=== PATIENT | male | born 1955 | race Caucasian/White ===

== ENCOUNTER 2017-12-12 13:26 | Inpatient (IN) | payer MEDICAID, OTHER ==
[2017-12-12 14:29] LABS: ADD MAN DIFF? NO
[2017-12-12 14:44] LABS: WHITE BLOOD COUNT 6.9 10^3/ul (4.8-10.8)
[2017-12-12 14:44] LABS: BASOPHILS % 0.4 % (0.0-2.0); EOSINOPHILS # 0.1 10^3/ul (0.0-0.5); EOSINOPHILS % 1.2 % (0.0-7.0); HEMATOCRIT 40.8 % (42.0-52.0); HEMOGLOBIN 13.4 g/dl (14.0-18.0); LYMPHOCYTES % 14.7 % (15.0-51.0); MEAN CORPUSCULAR HEMOGLOBIN 30.4 pg (29.0-33.0); MEAN CORPUSCULAR HGB CONC 32.8 g/dl (32.0-37.0); MEAN CORPUSCULAR VOLUME 92.5 fl (82.0-101.0); MONOCYTE # 0.4 10^3/ul (0.3-0.9); NEUTROPHIL # 5.5 10^3/ul (1.6-7.5); NEUTROPHILS % 78.6 % (39.0-77.0); PLATELET COUNT 194 10^3/UL (140-415); RED BLOOD COUNT 4.41 10^6/ul (4.70-6.10); RED CELL DISTRIBUTION WIDTH 13.6 % (11.5-14.5)
[2017-12-12 14:49] LABS: ANION GAP 14 (8-16); BLOOD UREA NITROGEN 15 mg/dl (7-20); CARBON DIOXIDE 26 mmol/L (21-31); CHLORIDE 106 mmol/L (97-110); CREATININE 0.88 mg/dl (0.61-1.24); GLUCOSE 126 mg/dl (70-220); POTASSIUM 4.5 mmol/L (3.5-5.1); SODIUM 141 mmol/L (135-144)
[2017-12-12 14:50] LABS: PROTIME 13.3 Sec (11.9-14.9)
[2017-12-12 15:01] LABS: TROPONIN-I 0.034 ng/ml (0.00-0.12)
[2017-12-12] MEDS: ASPIRIN 81 MG TAB PO (17:43)
[2017-12-12] MEDS: SOD CHLORIDE 0.9% 1,000 ML IV (18:16)
[2017-12-12] MEDS ORDERED: ACETAMINOPHEN 325 MG TAB PO (18:30)
[2017-12-12] MEDS ORDERED: NACL 0.9% 3 ML SYG IV (18:30)
[2017-12-12] MEDS ORDERED: HYDROCODONE/APAP (5/325) TAB PO (18:30)
[2017-12-12] MEDS ORDERED: LORAZEPAM 0.5 MG TAB PO (18:30)
[2017-12-12] MEDS ORDERED: morphine 2 MG INJ IV (18:30)
[2017-12-12] MEDS ORDERED: ONDANSETRON 4 MG INJ IV (18:30)
[2017-12-12] MEDS ORDERED: BISACODYL (EC) 5 MG TAB PO (18:30)
[2017-12-12] MEDS: NICOTINE (14 MG/24 HR) PATCH TRANSDERM (18:30)
[2017-12-12] MEDS: NEOMYC/POLYMYX/BACIT 30 GM OINT TOP (19:46)
[2017-12-12] MEDS: HEPARIN 5,000 UNIT/0.5 ML VIAL SC (22:54)
[2017-12-12] MEDS: FAMOTIDINE 20 MG INJ IV (22:57)
[2017-12-13 00:35] LABS: ANION GAP 12 (8-16); BLOOD UREA NITROGEN 15 mg/dl (7-20); CARBON DIOXIDE 28 mmol/L (21-31); CHLORIDE 106 mmol/L (97-110); CREATININE 0.83 mg/dl (0.61-1.24); GLUCOSE 124 mg/dl (70-220); MAGNESIUM 2.1 mg/dl (1.7-2.5); PHOSPHORUS 3.1 mg/dl (2.5-4.9); POTASSIUM 4.2 mmol/L (3.5-5.1); SODIUM 142 mmol/L (135-144)
[2017-12-13 02:59] LABS: TROPONIN-I 0.037 ng/ml (0.00-0.12)
[2017-12-13] MEDS: HEPARIN 5,000 UNIT/0.5 ML VIAL SC ×3 (05:49→21:55)
[2017-12-13 06:22] LABS: ADD MAN DIFF? NO
[2017-12-13 06:31] LABS: BASOPHILS % 0.4 % (0.0-2.0); EOSINOPHILS # 0.2 10^3/ul (0.0-0.5); EOSINOPHILS % 3.1 % (0.0-7.0); HEMATOCRIT 39.7 % (42.0-52.0); HEMOGLOBIN 13.2 g/dl (14.0-18.0); LYMPHOCYTES # 2.1 10^3/ul (0.8-2.9); MEAN CORPUSCULAR HEMOGLOBIN 30.9 pg (29.0-33.0); MEAN CORPUSCULAR HGB CONC 33.2 g/dl (32.0-37.0); MEAN PLATELET VOLUME 12.2 fl (7.4-10.4); MONOCYTE # 0.6 10^3/ul (0.3-0.9); MONOCYTES % 7.6 % (0.0-11.0); NEUTROPHIL # 4.5 10^3/ul (1.6-7.5); NEUTROPHILS % 60.8 % (39.0-77.0); PLATELET COUNT 187 10^3/UL (140-415); RED BLOOD COUNT 4.27 10^6/ul (4.70-6.10); RED CELL DISTRIBUTION WIDTH 13.6 % (11.5-14.5)
[2017-12-13 06:31] LABS: WHITE BLOOD COUNT 7.4 10^3/ul (4.8-10.8)
[2017-12-13 06:55] LABS: ALANINE AMINOTRANSFERASE 29 IU/L (13-69); ALBUMIN 3.6 g/dl (3.3-4.9); ALBUMIN/GLOBULIN RATIO 1.33; ALKALINE PHOSPHATASE 59 IU/L (42-121); ANION GAP 13 (8-16); ASPARTATE AMINO TRANSFERASE 19 IU/L (15-46); BILIRUBIN,INDIRECT 0.2 mg/dl (0-1.1); BILIRUBIN,TOTAL 0.2 mg/dl (0.2-1.3); BLOOD UREA NITROGEN 18 mg/dl (7-20); CALCIUM 8.9 mg/dl (8.4-10.2); CARBON DIOXIDE 28 mmol/L (21-31); CHLORIDE 107 mmol/L (97-110); CHOL/HDL RATIO 6.2 RATIO; CHOLESTEROL 174 mg/dl (100-200); CREATININE 0.91 mg/dl (0.61-1.24); GLUCOSE 91 mg/dl (70-220); HDL CHOLESTEROL 28 mg/dl (30-78); LDL CHOLESTEROL,CALCULATED 126 mg/dl; MAGNESIUM 2.1 mg/dl (1.7-2.5); POTASSIUM 4.2 mmol/L (3.5-5.1); SODIUM 144 mmol/L (135-144); TOTAL PROTEIN 6.3 g/dl (6.1-8.1); TRIGLYCERIDES 102 mg/dl (0-149)
[2017-12-13] MEDS: SOD CHLORIDE 0.9% 1,000 ML IV (07:28)
[2017-12-13 07:52] LABS: HEMOGLOBIN A1C 5.3 % (0-5.9)
[2017-12-13] MEDS: ASPIRIN 81 MG TAB PO (08:34)
[2017-12-13] MEDS: FAMOTIDINE 20 MG INJ IV ×2 (08:34→21:53)
[2017-12-13] MEDS: NICOTINE (14 MG/24 HR) PATCH TRANSDERM (08:38)
[2017-12-13] MEDS: AMIODARONE 150MG/D5W BOLUS 100 ML IV (13:09)
[2017-12-13] MEDS: AMIODARONE 900 MG in DEXTROSE 5% 482 ML IV (13:24)
[2017-12-13] MEDS: IOHEXOL 100 ML (18:01)
[2017-12-13] MEDS: ATORVASTATIN 40 MG TAB PO (21:55)
[2017-12-14] MEDS: HEPARIN 5,000 UNIT/0.5 ML VIAL SC ×3 (05:57→22:11)
[2017-12-14 06:16] LABS: ADD MAN DIFF? NO
[2017-12-14 06:25] LABS: BASOPHIL # 0.1 10^3/ul (0.0-0.1); BASOPHILS % 0.8 % (0.0-2.0); EOSINOPHILS # 0.2 10^3/ul (0.0-0.5); EOSINOPHILS % 2.9 % (0.0-7.0); HEMOGLOBIN 13.5 g/dl (14.0-18.0); LYMPHOCYTES # 2.3 10^3/ul (0.8-2.9); LYMPHOCYTES % 29.5 % (15.0-51.0); MEAN CORPUSCULAR HGB CONC 32.9 g/dl (32.0-37.0); MEAN PLATELET VOLUME 12.9 fl (7.4-10.4); MONOCYTE # 0.6 10^3/ul (0.3-0.9); MONOCYTES % 7.6 % (0.0-11.0); NEUTROPHIL # 4.7 10^3/ul (1.6-7.5); NEUTROPHILS % 58.8 % (39.0-77.0); PLATELET COUNT 168 10^3/UL (140-415); RED BLOOD COUNT 4.36 10^6/ul (4.70-6.10); RED CELL DISTRIBUTION WIDTH 13.5 % (11.5-14.5)
[2017-12-14 06:25] LABS: WHITE BLOOD COUNT 7.9 10^3/ul (4.8-10.8)
[2017-12-14 06:50] LABS: ANION GAP 15 (8-16); BLOOD UREA NITROGEN 23 mg/dl (7-20); CALCIUM 9.6 mg/dl (8.4-10.2); CARBON DIOXIDE 26 mmol/L (21-31); CHLORIDE 105 mmol/L (97-110); CREATININE 1.02 mg/dl (0.61-1.24); GLUCOSE 106 mg/dl (70-220); PHOSPHORUS 4.2 mg/dl (2.5-4.9); POTASSIUM 4.4 mmol/L (3.5-5.1); SODIUM 142 mmol/L (135-144)
[2017-12-14] MEDS: FAMOTIDINE 20 MG INJ IV ×2 (09:51→22:08)
[2017-12-14] MEDS: LISINOPRIL 5 MG TAB PO (09:51)
[2017-12-14] MEDS: ASPIRIN 81 MG TAB PO (09:52)
[2017-12-14] MEDS: NICOTINE (14 MG/24 HR) PATCH TRANSDERM (09:52)
[2017-12-14] MEDS: ATORVASTATIN 40 MG TAB PO (22:08)
[2017-12-15 08:14] LABS: ADD MAN DIFF? NO
[2017-12-15 08:32] LABS: BASOPHILS % 0.5 % (0.0-2.0); EOSINOPHILS # 0.2 10^3/ul (0.0-0.5); EOSINOPHILS % 2.8 % (0.0-7.0); HEMATOCRIT 38.9 % (42.0-52.0); HEMOGLOBIN 13.1 g/dl (14.0-18.0); LYMPHOCYTES # 2.4 10^3/ul (0.8-2.9); LYMPHOCYTES % 29.5 % (15.0-51.0); MEAN CORPUSCULAR HEMOGLOBIN 31.1 pg (29.0-33.0); MEAN CORPUSCULAR HGB CONC 33.7 g/dl (32.0-37.0); MEAN CORPUSCULAR VOLUME 92.4 fl (82.0-101.0); MEAN PLATELET VOLUME 12.9 fl (7.4-10.4); MONOCYTE # 0.6 10^3/ul (0.3-0.9); MONOCYTES % 7.7 % (0.0-11.0); NEUTROPHIL # 4.7 10^3/ul (1.6-7.5); NEUTROPHILS % 59.2 % (39.0-77.0); PLATELET COUNT 175 10^3/UL (140-415); RED BLOOD COUNT 4.21 10^6/ul (4.70-6.10); RED CELL DISTRIBUTION WIDTH 13.5 % (11.5-14.5)
[2017-12-15] MEDS ORDERED: FENTAnyl 50 MCG/ML VIAL (08:39)
[2017-12-15] MEDS ORDERED: HEPARIN 1000 UNITS/ML 10 ML INJ (08:39)
[2017-12-15] MEDS ORDERED: IODIXANOL LOCM 100 ML BTL (08:39)
[2017-12-15] MEDS ORDERED: MIDAZOLAM 1 MG/ML 2 ML INJ (08:39)
[2017-12-15] MEDS ORDERED: VERAPAMIL 5 MG INJ (08:40)
[2017-12-15] MEDS ORDERED: NITROGLYCERIN (IC) 100 MCG/ML INJ (08:40)
[2017-12-15] MEDS ORDERED: SOD CHLORIDE 0.45% 1,000 ML (08:41)
[2017-12-15 08:54] LABS: ANION GAP 14 (8-16); BLOOD UREA NITROGEN 22 mg/dl (7-20); CALCIUM 9.2 mg/dl (8.4-10.2); CARBON DIOXIDE 28 mmol/L (21-31); CHLORIDE 104 mmol/L (97-110); CREATININE 0.96 mg/dl (0.61-1.24); GLUCOSE 90 mg/dl (70-220); POTASSIUM 4.4 mmol/L (3.5-5.1); SODIUM 142 mmol/L (135-144)
[2017-12-15] MEDS: INFLUENZA VIRUS VACCINE 0.5 ML (DISPENSING) IM* (09:00)
[2017-12-15] MEDS: NICOTINE (14 MG/24 HR) PATCH TRANSDERM (09:00)
[2017-12-15] MEDS: LISINOPRIL 5 MG TAB PO (09:00)
[2017-12-15] MEDS: FAMOTIDINE 20 MG INJ IV ×2 (13:02→20:12)
[2017-12-15] MEDS: ASPIRIN 81 MG TAB PO (14:18)
[2017-12-15] MEDS: ATORVASTATIN 40 MG TAB PO (20:11)
[2017-12-15] MEDS: AMIODARONE 200 MG TAB PO (20:11)
[2017-12-16] MEDS ORDERED: ALBUTEROL HFA 8 GM INHALER INH (03:00)
[2017-12-16 05:15] LABS: ADD MAN DIFF? NO
[2017-12-16 05:18] LABS: BASOPHILS % 0.6 % (0.0-2.0); EOSINOPHILS # 0.2 10^3/ul (0.0-0.5); EOSINOPHILS % 2.9 % (0.0-7.0); HEMOGLOBIN 11.7 g/dl (14.0-18.0); LYMPHOCYTES # 1.7 10^3/ul (0.8-2.9); LYMPHOCYTES % 23.2 % (15.0-51.0); MEAN CORPUSCULAR HGB CONC 33.4 g/dl (32.0-37.0); MEAN CORPUSCULAR VOLUME 92.8 fl (82.0-101.0); MEAN PLATELET VOLUME 12.7 fl (7.4-10.4); MONOCYTE # 0.6 10^3/ul (0.3-0.9); MONOCYTES % 7.9 % (0.0-11.0); NEUTROPHIL # 4.7 10^3/ul (1.6-7.5); PLATELET COUNT 145 10^3/UL (140-415); RED BLOOD COUNT 3.77 10^6/ul (4.70-6.10); RED CELL DISTRIBUTION WIDTH 13.8 % (11.5-14.5)
[2017-12-16 05:18] LABS: WHITE BLOOD COUNT 7.2 10^3/ul (4.8-10.8)
[2017-12-16 05:53] LABS: ANION GAP 13 (8-16); BLOOD UREA NITROGEN 20 mg/dl (7-20); CALCIUM 8.7 mg/dl (8.4-10.2); CARBON DIOXIDE 26 mmol/L (21-31); CHLORIDE 108 mmol/L (97-110); CREATININE 0.95 mg/dl (0.61-1.24); GLUCOSE 82 mg/dl (70-220); POTASSIUM 4.8 mmol/L (3.5-5.1); SODIUM 142 mmol/L (135-144)
[2017-12-16] MEDS: ASPIRIN 81 MG TAB PO (09:15)
[2017-12-16] MEDS: LISINOPRIL 5 MG TAB PO (09:15)
[2017-12-16] MEDS: FAMOTIDINE 20 MG TAB PO ×2 (09:16→20:23)
[2017-12-16] MEDS: AMIODARONE 200 MG TAB PO ×2 (09:16→20:23)
[2017-12-16] MEDS: NICOTINE (14 MG/24 HR) PATCH TRANSDERM (09:16)
[2017-12-16] MEDS: LEVALBUTEROL (NEB) 0.63 MG/3 ML AMP HHN ×2 (15:22→20:13)
[2017-12-16] MEDS: ATORVASTATIN 40 MG TAB PO (20:23)
[2017-12-17] MEDS: LEVALBUTEROL (NEB) 0.63 MG/3 ML AMP HHN ×4 (01:48→20:00)
[2017-12-17] MEDS: ASPIRIN 81 MG TAB PO (09:26)
[2017-12-17] MEDS: LISINOPRIL 5 MG TAB PO (09:26)
[2017-12-17] MEDS: AMIODARONE 200 MG TAB PO ×2 (09:26→20:27)
[2017-12-17] MEDS: FAMOTIDINE 20 MG TAB PO ×2 (09:26→20:27)
[2017-12-17] MEDS: NICOTINE (14 MG/24 HR) PATCH TRANSDERM (09:26)
[2017-12-17] MEDS: ATORVASTATIN 40 MG TAB PO (20:27)
[2017-12-18] MEDS: LEVALBUTEROL (NEB) 0.63 MG/3 ML AMP HHN ×4 (01:25→19:42)
[2017-12-18] MEDS: ASPIRIN 81 MG TAB PO (09:11)
[2017-12-18] MEDS: LISINOPRIL 5 MG TAB PO (09:11)
[2017-12-18] MEDS: FAMOTIDINE 20 MG TAB PO ×2 (09:11→21:13)
[2017-12-18] MEDS: AMIODARONE 200 MG TAB PO ×2 (09:12→21:12)
[2017-12-18] MEDS: NICOTINE (14 MG/24 HR) PATCH TRANSDERM (09:13)
[2017-12-18] MEDS: ATORVASTATIN 40 MG TAB PO (21:13)
[2017-12-19] MEDS: LEVALBUTEROL (NEB) 0.63 MG/3 ML AMP HHN ×4 (01:03→19:15)
[2017-12-19 05:37] LABS: ADD MAN DIFF? NO
[2017-12-19 05:42] LABS: ABNORMAL IP MESSAGE 1; BASOPHILS % 0.4 % (0.0-2.0); EOSINOPHILS # 0.3 10^3/ul (0.0-0.5); EOSINOPHILS % 3.4 % (0.0-7.0); HEMATOCRIT 36.9 % (42.0-52.0); HEMOGLOBIN 12.4 g/dl (14.0-18.0); LYMPHOCYTES # 1.5 10^3/ul (0.8-2.9); LYMPHOCYTES % 20.5 % (15.0-51.0); MEAN CORPUSCULAR HEMOGLOBIN 30.8 pg (29.0-33.0); MEAN CORPUSCULAR HGB CONC 33.6 g/dl (32.0-37.0); MEAN CORPUSCULAR VOLUME 91.8 fl (82.0-101.0); MEAN PLATELET VOLUME 13.1 fl (7.4-10.4); MONOCYTE # 0.6 10^3/ul (0.3-0.9); MONOCYTES % 8.5 % (0.0-11.0); NEUTROPHIL # 4.9 10^3/ul (1.6-7.5); NEUTROPHILS % 66.9 % (39.0-77.0); PLATELET COUNT 148 10^3/UL (140-415); POSITIVE DIFF @See below; RED BLOOD COUNT 4.02 10^6/ul (4.70-6.10); RED CELL DISTRIBUTION WIDTH 13.5 % (11.5-14.5)
[2017-12-19 05:42] LABS: WHITE BLOOD COUNT 7.3 10^3/ul (4.8-10.8)
[2017-12-19 06:08] LABS: ALBUMIN 3.5 g/dl (3.3-4.9); ANION GAP 15 (8-16); BLOOD UREA NITROGEN 27 mg/dl (7-20); CALCIUM 8.9 mg/dl (8.4-10.2); CARBON DIOXIDE 24 mmol/L (21-31); CHLORIDE 104 mmol/L (97-110); CREATININE 1.01 mg/dl (0.61-1.24); GLUCOSE 101 mg/dl (70-220); PHOSPHORUS 3.8 mg/dl (2.5-4.9); POTASSIUM 4.4 mmol/L (3.5-5.1); SODIUM 139 mmol/L (135-144)
[2017-12-19] MEDS: FAMOTIDINE 20 MG TAB PO ×2 (08:40→21:54)
[2017-12-19] MEDS: ASPIRIN 81 MG TAB PO (08:40)
[2017-12-19] MEDS: NICOTINE (14 MG/24 HR) PATCH TRANSDERM (08:40)
[2017-12-19] MEDS: AMIODARONE 200 MG TAB PO ×2 (08:41→21:55)
[2017-12-19] MEDS: LISINOPRIL 5 MG TAB PO (08:41)
[2017-12-19] MEDS: ATORVASTATIN 40 MG TAB PO (21:54)
[2017-12-20] MEDS: LEVALBUTEROL (NEB) 0.63 MG/3 ML AMP HHN ×4 (01:46→19:16)
[2017-12-20] MEDS: AMIODARONE 200 MG TAB PO ×2 (08:31→21:45)
[2017-12-20] MEDS: FAMOTIDINE 20 MG TAB PO ×2 (08:31→21:45)
[2017-12-20] MEDS: LISINOPRIL 5 MG TAB PO (08:32)
[2017-12-20] MEDS: ASPIRIN 81 MG TAB PO (08:32)
[2017-12-20] MEDS: NICOTINE (14 MG/24 HR) PATCH TRANSDERM (10:13)
[2017-12-20] MEDS: ATORVASTATIN 40 MG TAB PO (21:45)
[2017-12-21] MEDS: LEVALBUTEROL (NEB) 0.63 MG/3 ML AMP HHN ×4 (01:33→19:08)
[2017-12-21] MEDS: FAMOTIDINE 20 MG TAB PO ×2 (08:10→20:56)
[2017-12-21] MEDS: LISINOPRIL 5 MG TAB PO (08:11)
[2017-12-21] MEDS: AMIODARONE 200 MG TAB PO ×2 (08:11→20:56)
[2017-12-21] MEDS: ASPIRIN 81 MG TAB PO (08:11)
[2017-12-21] MEDS: NICOTINE (14 MG/24 HR) PATCH TRANSDERM (08:11)
[2017-12-21] MEDS: ATORVASTATIN 40 MG TAB PO (20:56)
[2017-12-22] MEDS: LEVALBUTEROL (NEB) 0.63 MG/3 ML AMP HHN ×4 (01:10→19:11)
[2017-12-22] MEDS: AMIODARONE 200 MG TAB PO ×2 (09:13→21:00)
[2017-12-22] MEDS: FAMOTIDINE 20 MG TAB PO ×2 (09:14→21:05)
[2017-12-22] MEDS: LISINOPRIL 5 MG TAB PO (09:14)
[2017-12-22] MEDS: NICOTINE (14 MG/24 HR) PATCH TRANSDERM (09:15)
[2017-12-22] MEDS: ASPIRIN 81 MG TAB PO (09:15)
[2017-12-22] MEDS: ATORVASTATIN 40 MG TAB PO (21:05)
[2017-12-23] MEDS: LEVALBUTEROL (NEB) 0.63 MG/3 ML AMP HHN ×4 (01:27→19:53)
[2017-12-23] MEDS: FAMOTIDINE 20 MG TAB PO ×2 (08:52→20:02)
[2017-12-23] MEDS: AMIODARONE 200 MG TAB PO ×2 (08:53→20:02)
[2017-12-23] MEDS: ASPIRIN 81 MG TAB PO (08:53)
[2017-12-23] MEDS: LISINOPRIL 5 MG TAB PO (09:00)
[2017-12-23] MEDS: NICOTINE (14 MG/24 HR) PATCH TRANSDERM (09:18)
[2017-12-23] MEDS: ATORVASTATIN 40 MG TAB PO (20:02)
[2017-12-24] MEDS: LEVALBUTEROL (NEB) 0.63 MG/3 ML AMP HHN ×4 (02:02→19:50)
[2017-12-24 08:57] LABS: ADD MAN DIFF? NO
[2017-12-24] MEDS: NICOTINE (14 MG/24 HR) PATCH TRANSDERM (09:00)
[2017-12-24] MEDS: LISINOPRIL 5 MG TAB PO (09:00)
[2017-12-24] MEDS: AMIODARONE 200 MG TAB PO ×2 (09:00→21:13)
[2017-12-24 09:06] LABS: WHITE BLOOD COUNT 8.4 10^3/ul (4.8-10.8)
[2017-12-24 09:06] LABS: BASOPHIL # 0.1 10^3/ul (0.0-0.1); BASOPHILS % 0.6 % (0.0-2.0); EOSINOPHILS # 0.4 10^3/ul (0.0-0.5); EOSINOPHILS % 4.7 % (0.0-7.0); HEMATOCRIT 38.4 % (42.0-52.0); MEAN CORPUSCULAR HEMOGLOBIN 30.9 pg (29.0-33.0); MEAN CORPUSCULAR HGB CONC 33.9 g/dl (32.0-37.0); MEAN CORPUSCULAR VOLUME 91.2 fl (82.0-101.0); MEAN PLATELET VOLUME 12.8 fl (7.4-10.4); MONOCYTE # 0.7 10^3/ul (0.3-0.9); MONOCYTES % 8.1 % (0.0-11.0); NEUTROPHIL # 5.2 10^3/ul (1.6-7.5); NEUTROPHILS % 62.4 % (39.0-77.0); PLATELET COUNT 166 10^3/UL (140-415); RED BLOOD COUNT 4.21 10^6/ul (4.70-6.10); RED CELL DISTRIBUTION WIDTH 13.5 % (11.5-14.5)
[2017-12-24] MEDS: ASPIRIN 81 MG TAB PO (09:27)
[2017-12-24] MEDS: FAMOTIDINE 20 MG TAB PO ×2 (09:27→21:12)
[2017-12-24 09:52] LABS: ANION GAP 15 (8-16); BLOOD UREA NITROGEN 18 mg/dl (7-20); CALCIUM 8.8 mg/dl (8.4-10.2); CARBON DIOXIDE 27 mmol/L (21-31); CHLORIDE 104 mmol/L (97-110); CREATININE 1.04 mg/dl (0.61-1.24); GLUCOSE 80 mg/dl (70-220); MAGNESIUM 2.1 mg/dl (1.7-2.5); POTASSIUM 4.7 mmol/L (3.5-5.1); SODIUM 141 mmol/L (135-144)
[2017-12-24] MEDS: ATORVASTATIN 40 MG TAB PO (21:13)
[2017-12-25] MEDS: LEVALBUTEROL (NEB) 0.63 MG/3 ML AMP HHN ×4 (02:37→19:53)
[2017-12-25] MEDS: AMIODARONE 200 MG TAB PO ×2 (09:00→21:54)
[2017-12-25] MEDS: ASPIRIN 81 MG TAB PO (09:27)
[2017-12-25] MEDS: FAMOTIDINE 20 MG TAB PO ×2 (09:27→20:57)
[2017-12-25] MEDS: LISINOPRIL 5 MG TAB PO (09:28)
[2017-12-25] MEDS: NICOTINE (14 MG/24 HR) PATCH TRANSDERM (09:28)
[2017-12-25] MEDS: ATORVASTATIN 40 MG TAB PO (20:57)
[2017-12-26] MEDS: LEVALBUTEROL (NEB) 0.63 MG/3 ML AMP HHN ×4 (01:38→19:02)
[2017-12-26 08:45] LABS: ANION GAP 17 (8-16); BLOOD UREA NITROGEN 14 mg/dl (7-20); CARBON DIOXIDE 26 mmol/L (21-31); CHLORIDE 105 mmol/L (97-110); CREATININE 0.89 mg/dl (0.61-1.24); GLUCOSE 83 mg/dl (70-220); POTASSIUM 4.8 mmol/L (3.5-5.1); SODIUM 143 mmol/L (135-144)
[2017-12-26] MEDS: FAMOTIDINE 20 MG TAB PO ×2 (09:28→21:00)
[2017-12-26] MEDS: ASPIRIN 81 MG TAB PO (09:28)
[2017-12-26] MEDS: LISINOPRIL 5 MG TAB PO (09:28)
[2017-12-26] MEDS: AMIODARONE 200 MG TAB PO ×2 (09:54→21:00)
[2017-12-26] MEDS: NICOTINE (14 MG/24 HR) PATCH TRANSDERM (11:22)
[2017-12-26] MEDS: ATORVASTATIN 40 MG TAB PO (20:59)
[2017-12-27] MEDS: LEVALBUTEROL (NEB) 0.63 MG/3 ML AMP HHN ×4 (01:44→20:24)
[2017-12-27] MEDS: AMIODARONE 200 MG TAB PO ×2 (09:00→21:00)
[2017-12-27] MEDS: ASPIRIN 81 MG TAB PO (09:01)
[2017-12-27] MEDS: FAMOTIDINE 20 MG TAB PO ×2 (09:01→21:51)
[2017-12-27] MEDS: NICOTINE (14 MG/24 HR) PATCH TRANSDERM (09:01)
[2017-12-27] MEDS: LISINOPRIL 5 MG TAB PO (09:02)
[2017-12-27] MEDS: ATORVASTATIN 40 MG TAB PO (21:50)
[2017-12-28] MEDS: LEVALBUTEROL (NEB) 0.63 MG/3 ML AMP HHN ×4 (01:05→19:37)
[2017-12-28] MEDS: FAMOTIDINE 20 MG TAB PO ×2 (08:30→20:51)
[2017-12-28] MEDS: ASPIRIN 81 MG TAB PO (08:30)
[2017-12-28] MEDS: NICOTINE (14 MG/24 HR) PATCH TRANSDERM (08:31)
[2017-12-28] MEDS: AMIODARONE 200 MG TAB PO ×2 (09:00→20:53)
[2017-12-28] MEDS: LISINOPRIL 5 MG TAB PO (09:00)
[2017-12-28] MEDS: ATORVASTATIN 40 MG TAB PO (20:51)
[2017-12-29] MEDS: LEVALBUTEROL (NEB) 0.63 MG/3 ML AMP HHN ×4 (02:17→20:39)
[2017-12-29] MEDS: NICOTINE (14 MG/24 HR) PATCH TRANSDERM (08:47)
[2017-12-29] MEDS: ASPIRIN 81 MG TAB PO (08:47)
[2017-12-29] MEDS: FAMOTIDINE 20 MG TAB PO ×2 (08:49→21:21)
[2017-12-29] MEDS: AMIODARONE 200 MG TAB PO ×2 (08:50→21:00)
[2017-12-29] MEDS: LISINOPRIL 5 MG TAB PO (08:51)
[2017-12-29] MEDS: ATORVASTATIN 40 MG TAB PO (21:21)
[2017-12-30] MEDS: LEVALBUTEROL (NEB) 0.63 MG/3 ML AMP HHN ×4 (01:41→19:18)
[2017-12-30] MEDS: ASPIRIN 81 MG TAB PO (08:49)
[2017-12-30] MEDS: NICOTINE (14 MG/24 HR) PATCH TRANSDERM (08:50)
[2017-12-30] MEDS: FAMOTIDINE 20 MG TAB PO ×2 (08:50→20:13)
[2017-12-30] MEDS: AMIODARONE 200 MG TAB PO ×2 (08:51→21:00)
[2017-12-30] MEDS: LISINOPRIL 5 MG TAB PO (08:52)
[2017-12-30] MEDS: ATORVASTATIN 40 MG TAB PO (20:13)
[2017-12-31] MEDS: LEVALBUTEROL (NEB) 0.63 MG/3 ML AMP HHN ×4 (01:02→19:57)
[2017-12-31] MEDS: FAMOTIDINE 20 MG TAB PO ×2 (08:49→20:08)
[2017-12-31] MEDS: NICOTINE (14 MG/24 HR) PATCH TRANSDERM (08:49)
[2017-12-31] MEDS: AMIODARONE 200 MG TAB PO ×2 (08:49→20:10)
[2017-12-31] MEDS: ASPIRIN 81 MG TAB PO (08:49)
[2017-12-31] MEDS: LISINOPRIL 5 MG TAB PO (08:50)
[2017-12-31 09:46] LABS: ADD MAN DIFF? NO
[2017-12-31 09:50] LABS: WHITE BLOOD COUNT 8.2 10^3/ul (4.8-10.8)
[2017-12-31 09:50] LABS: BASOPHILS % 0.5 % (0.0-2.0); EOSINOPHILS # 0.5 10^3/ul (0.0-0.5); EOSINOPHILS % 5.8 % (0.0-7.0); HEMATOCRIT 41.3 % (42.0-52.0); LYMPHOCYTES # 2.4 10^3/ul (0.8-2.9); LYMPHOCYTES % 28.7 % (15.0-51.0); MEAN CORPUSCULAR HEMOGLOBIN 31.2 pg (29.0-33.0); MEAN CORPUSCULAR HGB CONC 33.9 g/dl (32.0-37.0); MEAN PLATELET VOLUME 11.3 fl (7.4-10.4); MONOCYTE # 0.3 10^3/ul (0.3-0.9); MONOCYTES % 3.8 % (0.0-11.0); PLATELET COUNT 205 10^3/UL (140-415); RED BLOOD COUNT 4.49 10^6/ul (4.70-6.10); RED CELL DISTRIBUTION WIDTH 13.2 % (11.5-14.5)
[2017-12-31 10:05] LABS: ALANINE AMINOTRANSFERASE 35 IU/L (13-69); ALBUMIN/GLOBULIN RATIO 1.33; ALKALINE PHOSPHATASE 80 IU/L (42-121); ANION GAP 18 (8-16); ASPARTATE AMINO TRANSFERASE 26 IU/L (15-46); BILIRUBIN,INDIRECT 0.2 mg/dl (0-1.1); BILIRUBIN,TOTAL 0.2 mg/dl (0.2-1.3); BLOOD UREA NITROGEN 16 mg/dl (7-20); CALCIUM 8.8 mg/dl (8.4-10.2); CARBON DIOXIDE 25 mmol/L (21-31); CHLORIDE 102 mmol/L (97-110); CREATININE 0.83 mg/dl (0.61-1.24); GLUCOSE 126 mg/dl (70-220); POTASSIUM 4.1 mmol/L (3.5-5.1); SODIUM 141 mmol/L (135-144)
[2017-12-31] MEDS: ATORVASTATIN 40 MG TAB PO (20:08)
[2018-01-01] MEDS: LEVALBUTEROL (NEB) 0.63 MG/3 ML AMP HHN ×4 (01:40→19:20)
[2018-01-01] MEDS: FAMOTIDINE 20 MG TAB PO ×2 (08:59→21:23)
[2018-01-01] MEDS: ASPIRIN 81 MG TAB PO (08:59)
[2018-01-01] MEDS: LISINOPRIL 5 MG TAB PO (09:00)
[2018-01-01] MEDS: NICOTINE (14 MG/24 HR) PATCH TRANSDERM (09:00)
[2018-01-01] MEDS: AMIODARONE 200 MG TAB PO ×2 (09:00→21:00)
[2018-01-01] MEDS: ATORVASTATIN 40 MG TAB PO (21:23)
[2018-01-02] MEDS: LEVALBUTEROL (NEB) 0.63 MG/3 ML AMP HHN ×4 (02:36→19:32)
[2018-01-02] MEDS: FAMOTIDINE 20 MG TAB PO ×2 (08:44→20:32)
[2018-01-02] MEDS: NICOTINE (14 MG/24 HR) PATCH TRANSDERM (08:44)
[2018-01-02] MEDS: AMIODARONE 200 MG TAB PO ×2 (08:44→20:32)
[2018-01-02] MEDS: ASPIRIN 81 MG TAB PO (08:44)
[2018-01-02] MEDS: LISINOPRIL 5 MG TAB PO (08:45)
[2018-01-02] MEDS: ATORVASTATIN 40 MG TAB PO (20:32)
[2018-01-03] MEDS: LEVALBUTEROL (NEB) 0.63 MG/3 ML AMP HHN ×4 (01:16→19:41)
[2018-01-03] MEDS: AMIODARONE 200 MG TAB PO ×2 (08:55→20:07)
[2018-01-03] MEDS: LISINOPRIL 5 MG TAB PO (08:55)
[2018-01-03] MEDS: ASPIRIN 81 MG TAB PO (08:55)
[2018-01-03] MEDS: FAMOTIDINE 20 MG TAB PO ×2 (08:55→20:06)
[2018-01-03] MEDS: NICOTINE (14 MG/24 HR) PATCH TRANSDERM (08:55)
[2018-01-03] MEDS: ATORVASTATIN 40 MG TAB PO (20:07)
[2018-01-04] MEDS: LEVALBUTEROL (NEB) 0.63 MG/3 ML AMP HHN ×4 (01:05→20:06)
[2018-01-04] MEDS: FAMOTIDINE 20 MG TAB PO ×2 (08:15→21:47)
[2018-01-04] MEDS: ASPIRIN 81 MG TAB PO (08:15)
[2018-01-04] MEDS: NICOTINE (14 MG/24 HR) PATCH TRANSDERM (08:16)
[2018-01-04] MEDS: LISINOPRIL 5 MG TAB PO (09:00)
[2018-01-04] MEDS: AMIODARONE 200 MG TAB PO ×2 (09:00→21:00)
[2018-01-04] MEDS: ATORVASTATIN 40 MG TAB PO (21:47)
[2018-01-04] MEDS ORDERED: INSULIN GLARGINE [LANtus] 3 ML PEN SC (22:00)
[2018-01-05] MEDS: LEVALBUTEROL (NEB) 0.63 MG/3 ML AMP HHN ×4 (01:19→19:27)
[2018-01-05] MEDS: ASPIRIN 81 MG TAB PO (08:44)
[2018-01-05] MEDS: FAMOTIDINE 20 MG TAB PO ×2 (08:44→20:25)
[2018-01-05] MEDS: LISINOPRIL 5 MG TAB PO (08:44)
[2018-01-05] MEDS: AMIODARONE 200 MG TAB PO ×2 (08:45→20:25)
[2018-01-05] MEDS: NICOTINE (14 MG/24 HR) PATCH TRANSDERM (08:45)
[2018-01-05] MEDS: ATORVASTATIN 40 MG TAB PO (20:25)
[2018-01-06] MEDS: LEVALBUTEROL (NEB) 0.63 MG/3 ML AMP HHN ×4 (01:31→19:43)
[2018-01-06 07:58] LABS: ADD MAN DIFF? NO
[2018-01-06 08:07] LABS: WHITE BLOOD COUNT 7.2 10^3/ul (4.8-10.8)
[2018-01-06 08:07] LABS: BASOPHIL # 0.1 10^3/ul (0.0-0.1); BASOPHILS % 0.7 % (0.0-2.0); EOSINOPHILS # 0.6 10^3/ul (0.0-0.5); EOSINOPHILS % 8.6 % (0.0-7.0); HEMATOCRIT 40.4 % (42.0-52.0); HEMOGLOBIN 13.8 g/dl (14.0-18.0); LYMPHOCYTES # 2.9 10^3/ul (0.8-2.9); LYMPHOCYTES % 39.7 % (15.0-51.0); MEAN CORPUSCULAR HEMOGLOBIN 31.1 pg (29.0-33.0); MEAN CORPUSCULAR HGB CONC 34.2 g/dl (32.0-37.0); MEAN PLATELET VOLUME 11.5 fl (7.4-10.4); MONOCYTE # 0.4 10^3/ul (0.3-0.9); MONOCYTES % 5.8 % (0.0-11.0); NEUTROPHIL # 3.3 10^3/ul (1.6-7.5); NEUTROPHILS % 45.1 % (39.0-77.0); PLATELET COUNT 207 10^3/UL (140-415); RED BLOOD COUNT 4.44 10^6/ul (4.70-6.10); RED CELL DISTRIBUTION WIDTH 12.8 % (11.5-14.5)
[2018-01-06 08:29] LABS: ANION GAP 16 (8-16); BLOOD UREA NITROGEN 18 mg/dl (7-20); CALCIUM 8.8 mg/dl (8.4-10.2); CARBON DIOXIDE 27 mmol/L (21-31); CHLORIDE 102 mmol/L (97-110); CREATININE 0.82 mg/dl (0.61-1.24); GLUCOSE 78 mg/dl (70-220); POTASSIUM 4.4 mmol/L (3.5-5.1); SODIUM 141 mmol/L (135-144)
[2018-01-06] MEDS: FAMOTIDINE 20 MG TAB PO ×2 (08:47→21:35)
[2018-01-06] MEDS: ASPIRIN 81 MG TAB PO (08:47)
[2018-01-06] MEDS: NICOTINE (14 MG/24 HR) PATCH TRANSDERM (08:48)
[2018-01-06] MEDS: LISINOPRIL 5 MG TAB PO (08:51)
[2018-01-06] MEDS: AMIODARONE 200 MG TAB PO ×2 (08:52→21:00)
[2018-01-06] MEDS: ATORVASTATIN 40 MG TAB PO (21:35)
[2018-01-07] MEDS: LEVALBUTEROL (NEB) 0.63 MG/3 ML AMP HHN ×4 (02:24→19:34)
[2018-01-07] MEDS: NICOTINE (14 MG/24 HR) PATCH TRANSDERM (08:45)
[2018-01-07] MEDS: AMIODARONE 200 MG TAB PO ×2 (08:46→20:40)
[2018-01-07] MEDS: FAMOTIDINE 20 MG TAB PO ×2 (08:46→20:39)
[2018-01-07] MEDS: ASPIRIN 81 MG TAB PO (08:46)
[2018-01-07] MEDS: LISINOPRIL 5 MG TAB PO (08:47)
[2018-01-07] MEDS: ATORVASTATIN 40 MG TAB PO (20:39)
[2018-01-08] MEDS: LEVALBUTEROL (NEB) 0.63 MG/3 ML AMP HHN ×4 (01:18→19:37)
[2018-01-08] MEDS: LISINOPRIL 5 MG TAB PO (09:00)
[2018-01-08] MEDS: AMIODARONE 200 MG TAB PO ×2 (09:00→20:59)
[2018-01-08] MEDS: FAMOTIDINE 20 MG TAB PO ×2 (10:09→20:59)
[2018-01-08] MEDS: ASPIRIN 81 MG TAB PO (10:09)
[2018-01-08] MEDS: NICOTINE (14 MG/24 HR) PATCH TRANSDERM (10:10)
[2018-01-08] MEDS: ATORVASTATIN 40 MG TAB PO (20:59)
[2018-01-09] MEDS: LEVALBUTEROL (NEB) 0.63 MG/3 ML AMP HHN ×4 (01:57→19:16)
[2018-01-09] MEDS: AMIODARONE 200 MG TAB PO ×2 (09:00→21:00)
[2018-01-09] MEDS: FAMOTIDINE 20 MG TAB PO ×2 (09:25→21:21)
[2018-01-09] MEDS: ASPIRIN 81 MG TAB PO (09:25)
[2018-01-09] MEDS: NICOTINE (14 MG/24 HR) PATCH TRANSDERM (09:27)
[2018-01-09] MEDS: LISINOPRIL 5 MG TAB PO (09:28)
[2018-01-09] MEDS: ATORVASTATIN 40 MG TAB PO (21:21)
[2018-01-10] MEDS: LEVALBUTEROL (NEB) 0.63 MG/3 ML AMP HHN ×4 (01:26→19:50)
[2018-01-10] MEDS: LISINOPRIL 5 MG TAB PO (08:40)
[2018-01-10] MEDS: ASPIRIN 81 MG TAB PO (08:41)
[2018-01-10] MEDS: FAMOTIDINE 20 MG TAB PO ×2 (08:41→20:31)
[2018-01-10] MEDS: NICOTINE (14 MG/24 HR) PATCH TRANSDERM (08:42)
[2018-01-10] MEDS: AMIODARONE 200 MG TAB PO ×2 (09:00→20:31)
[2018-01-10] MEDS: ATORVASTATIN 40 MG TAB PO (20:30)
[2018-01-11] MEDS: LEVALBUTEROL (NEB) 0.63 MG/3 ML AMP HHN ×2 (01:35→08:42)
[2018-01-11] MEDS: FAMOTIDINE 20 MG TAB PO (08:37)
[2018-01-11] MEDS: ASPIRIN 81 MG TAB PO (08:38)
[2018-01-11] MEDS: NICOTINE (14 MG/24 HR) PATCH TRANSDERM (08:38)
[2018-01-11] MEDS: LISINOPRIL 5 MG TAB PO (08:39)
[2018-01-11] MEDS: AMIODARONE 200 MG TAB PO (08:39)
== END 2018-01-11 11:30 | disposition short-term general hospital (02) | DRG 287 ==
LOC: MS4 12-19 11:26 → E/R 13:26 → ICU 12-15 19:00 → MS4 18:21
PROVIDERS: Internal Medicine
PROC: 4A023N7 Measurement of Cardiac Sampling and Pressure, Left Heart, Percutaneous Approach (ICD-10-PCS; principal; 2017-12-15 08:30)
PROC: B211YZZ Fluoroscopy of Multiple Coronary Arteries using Other Contrast (ICD-10-PCS; 2017-12-15 08:30)
DX: I25.10 Atherosclerotic heart disease of native coronary artery without angina pectoris (principal); I47.2 Ventricular tachycardia; I50.20 Unspecified systolic (congestive) heart failure; I25.82 Chronic total occlusion of coronary artery; I11.0 Hypertensive heart disease with heart failure; I65.23 Occlusion and stenosis of bilateral carotid arteries; R55 Syncope and collapse; D64.9 Anemia, unspecified; E78.5 Hyperlipidemia, unspecified; F17.200 Nicotine dependence, unspecified, uncomplicated; I25.5 Ischemic cardiomyopathy; I34.0 Nonrheumatic mitral (valve) insufficiency; I25.2 Old myocardial infarction; R07.9 Chest pain, unspecified
CPT/HCPCS: 70450; 70498; 71045; 80048; 80053; 80061; 80069; 82962; 83036; 83735; 84100; 84443; 84484; 85025; 85610; 87081; 93005; 93306; 93308; 93454; 93880; 94640; 94664; 99285-25; G0378